=== PATIENT | male | born 1980 | race Caucasian/White ===

== ENCOUNTER 2018-11-13 18:52 | Emergency (ER) | payer OTHER ==
[~2018-11-13] VITALS: Ht 180.3 cm; Wt 65.8 kg
[2018-11-13] MEDS ORDERED: CYCLOBENZAPRINE HCL 10 MG TABLET PO ONE (20:00)
[2018-11-13] MEDS ORDERED: HYDROCODONE/APAP 10-325 MG TABLET PO ONE (20:00)
[2018-11-13] MEDS ORDERED: ONDANSETRON ODT 4 MG TAB.RAPDIS SL ONE (20:00)
[2018-11-13] MEDS ORDERED: predniSONE 20 MG TABLET PO ONE (20:00)
[2018-11-13] MEDS ORDERED: CYCLOBENZAPRINE HCL 10 MG TABLET ONE (20:07)
[2018-11-13] MEDS ORDERED: ONDANSETRON ODT 4 MG TAB.RAPDIS ONE (20:07)
[2018-11-13] MEDS ORDERED: predniSONE 20 MG TABLET ONE (20:08)
[2018-11-13] MEDS ORDERED: HYDROCODONE/APAP 10-325 MG TABLET ONE (20:08)
--- NOTE | 2018-11-13 20:43 | NUR ---
Patient discharged to home in stable conditon. Written and verbal after care instructions given. Patient verbalizes understanding of instructions. Pt left ER in steady gait. All belongings with pt. VSS. NAD noted. Pt dad will drive him home.
[2018-11-13 20:46] VITALS: BP 126/82
== END 2018-11-13 20:47 | disposition home or self-care (01) ==
LOC: ER 18:52
DX: M54.42 Lumbago with sciatica, left side (principal)
CPT/HCPCS: 72100; 99284; J7512; A4663; Q0162